=== PATIENT | male | born 1975 | race Hispanic/Latino ===

== ENCOUNTER 2018-06-15 08:45 | Emergency (ER) | payer OTHER ==
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
== END 2018-06-15 09:54 | disposition home or self-care (01) ==
LOC: ER 08:45
DX: M54.2 Cervicalgia (principal); M54.9 Dorsalgia, unspecified; V49.40XA Driver injured in collision with unspecified motor vehicles in traffic accident, initial encounter
CPT/HCPCS: 99283

== ENCOUNTER 2023-11-21 17:34 | Emergency (ER) | payer OTHER ==
--- NOTE | 2023-11-21 19:43 | EDPHYS ---
Physician Documentation [facility] Name: Dominick Rao Age: 48 yrs Sex: Male : 1975 Arrival Date: 11/21/2023 Time: 17:34 Bed Treatment Private MD: ED Physician Hilario Seaman HPI: 11/20 18:03 This 48 yrs old Male presents to ER via Ambulatory with complaints of Insect sb4 Bite. 18:33 patient reports multiple abscesses of varying severities on his right flank, left leg, sb4 and buttocks. he is unsure what they started as, possibly chiggers. states he has bene trying to manage them at home but they are very red and painful. Historical: - Allergies: 17:52 No Known Allergies; ll1 - PMHx: 17:52 Hypertensive disorder; ll1 - PSHx: 17:52 lap band; ll1 - Immunization history:: Adult Immunizations up to date. - Infectious Disease History:: Denies. - Social history:: Smoking status: Patient/guardian denies using tobacco, Stopped _ months ago 3. ROS: 18:34 Constitutional: Negative for fever, chills, and weight loss, sb4 18:34 Skin: Positive for abscess, per HPI, 18:34 All other systems are negative, Exam: 19:38 Skin: abscess, that is small, of the left hamstring, with induration, with surrounding sb4 cellulitis, that is mild, 19:39 Skin: abscess, that is small, of the left gluteus lorraine, with induration, sb4 19:39 Constitutional: This is a well developed, well nourished patient who is awake, alert, sb4 and in no acute distress. Head/Face: Normocephalic, atraumatic. Eyes: Extra-ocular motions intact. Periorbital areas with no swelling, redness, or edema. ENT: Mucous membranes moist. 19:39 Skin: abscess, that is small, of the right low back, with induration, with surrounding cellulitis, Vital Signs: 17:51 BP 159 / 86; Pulse 90; Resp 17; Temp 98.2; Pulse Ox 100% on R/A; Weight 86.18 kg; ll1 Height 5 ft. 6 in. ; Pain 9/10; 19:54 BP 151 / 97; Pulse 90; Resp 17; Pulse Ox 99% on R/A; Pain 5/10; al5 17:51 Body Mass Index 30.67 (86.18 kg, 167.64 cm) ll1 17:51 Pain Scale: Adult ll1 19:54 Pain Scale: Adult al5 Procedures: 19:39 I \T\ D: Incision and drainage was performed for an abscess of the left left hamstring sb4 Prepped with Betadine, Anesthetized with 2 ml's 1% Lidocaine. Incised with #11 blade. Drained small amount serosanguinous fluid. the patient tolerated the procedure well. 19:41 I \T\ D: Incision and drainage was performed for an abscess of the left left gluteus sb4 lorraine Prepped with Betadine, Anesthetized with 1 ml's 1% Lidocaine. Incised with #11 blade. Drained small amount the patient tolerated the procedure well. MDM: 17:47 Patient medically screened. sb4 19:39 Differential diagnosis: abscess, allergic reaction, cellulitis, insect bite. Data sb4 reviewed: vital signs, nurses notes, and as a result, I will discharge patient. 19:41 Counseling: I had a detailed discussion with the patient and/or guardian regarding the sb4 historical points, exam findings, and any diagnostic results supporting the discharge/admit diagnosis, to return to the emergency department if symptoms worsen or persist or if there are any questions or concerns that arise at home. 11/20 17:56 Order name: Incision \T\ Drainage Setup; Complete Time: 19:41 sb4 Administered Medications: 19:45 Not Given (med not available in pyxiss): trimethoprim-sulfamethoxazole(160 mg-800 mg al5 (ds) 1 tablet PO once 19:52 Drug: Cephalexin PO 500 mg PO once Route: PO; al5 19:55 Follow up: Response: No adverse reaction al5 Disposition Summary: 11/21/23 19:42 Discharge Ordered Notes: Location: Home sb4 Problem: new sb4 Symptoms: have improved sb4 Condition: Stable sb4 Diagnosis - Cutaneous abscess of left lower limb sb4 - Cutaneous abscess of buttock sb4 Followup: sb4 - With: Private Physician - When: As needed - Reason: Recheck today's complaints, Re-evaluation by your physician Discharge Instructions: - Discharge Summary Sheet sb4 - Skin Abscess, [id number] sb4 - Incision and Drainage, Care After sb4 Forms: - Antibiotic Education sb4 - Patient Portal Instructions sb4 - Leadership Thank You Letter sb4 Prescriptions: - Cephalexin 500 mg Oral Capsule - take 1 capsule ORAL route every 8 hours for 10 days; 30 capsule; Refills: 0, sb4 Product Selection Permitted - Bactrim DS 800-160 mg Oral Tablet - take 1 tablet ORAL route every 12 hours for 7 days; 14 tablet; Refills: 0, sb4 Product Selection Permitted Signatures: Milena Telles, RN RN ll1 Mary Lipscomb, PA-C PA-C sb4 Darby Cates RN RN al5
--- NOTE | 2023-11-21 19:43 | ER ---
Nurse's Notes [facility] Name: Dominick Rao Age: 48 yrs Sex: Male : 1975 Arrival Date: 11/21/2023 Time: 17:34 Bed Treatment Private MD: Diagnosis: Cutaneous abscess of left lower limb;Cutaneous abscess of buttock Presentation: 11/20 17:51 Chief complaint: Patient states: Abscess to R side of back for 4 days, this site seems ll1 to be getting better. Small abscess to L buttocks developed since, that area getting worse. No fever. Coronavirus screen: Client denies travel out of the [place] in the last 14 days. At this time, the client does not indicate any symptoms associated with coronavirus-19. Ebola Screen: Patient denies travel to an Ebola-affected area in the 21 days before illness onset. Initial Sepsis Screen: Does the patient meet any 2 criteria? No. Patient's initial sepsis screen is negative. Does the patient have a suspected source of infection? No. Patient's initial sepsis screen is negative. Risk Assessment: Do you want to hurt yourself or someone else? Patient reports no desire to harm self or others. Onset of symptoms was November 18, 2023. 17:51 Method Of Arrival: Ambulatory ll1 17:51 Acuity: ELENITA 3 ll1 Triage Assessment: 17:53 General: Appears in no apparent distress. Behavior is calm, cooperative, appropriate ll1 for age. Pain: Complains of pain in L buttocks Quality of pain is described as aching. Neuro: No deficits noted. Cardiovascular: No deficits noted. Derm: Abscess located on L buttocks. 19:55 Bite description: bite sustained to buttocks by insect, animal information: al5 vaccination(s) is not applicable. Historical: - Allergies: 17:52 No Known Allergies; ll1 - PMHx: 17:52 Hypertensive disorder; ll1 - PSHx: 17:52 lap band; ll1 - Immunization history:: Adult Immunizations up to date. - Infectious Disease History:: Denies. - Social history:: Smoking status: Patient/guardian denies using tobacco, Stopped _ months ago 3. Screenin:54 [facility] ED Fall Risk Assessment (Adult) History of falling in the last 3 months, al5 including since admission No falls in past 3 months (0 pts) Confusion or Disorientation No (0 pts) Intoxicated or Sedated No (0 pts) Impaired Gait No (0 pts) Mobility Assist Device Used No (0 pt) Altered Elimination No (0 pt) Score/Fall Risk Level 0 - 2 = Low Risk Oriented to surroundings, Maintained a safe environment, Hourly rounding (assess needs \T\ fall precautionary measures) done. Abuse screen: Denies threats or abuse. Denies injuries from another. Nutritional screening: No deficits noted. Tuberculosis screening: No symptoms or risk factors identified. Assessment: 19:53 General: Appears in no apparent distress. Behavior is calm, cooperative. Pain: Pain al5 currently is 5 out of 10 on a pain scale. Neuro: No deficits noted. Level of Consciousness is awake, alert, obeys commands, Oriented to person, place, time, situation. Cardiovascular: No deficits noted. Patient's skin is warm and dry. Respiratory: No deficits noted. Airway is patent Trachea midline Respiratory effort is even, unlabored, Respiratory pattern is regular, symmetrical. GI: No deficits noted. No signs and/or symptoms were reported involving the gastrointestinal system. : No deficits noted. No signs and/or symptoms were reported regarding the genitourinary system. EENT: No deficits noted. No signs and/or symptoms were reported regarding the EENT system. Derm: Skin is intact, Skin is pink, warm \T\ dry. normal, Reports insect bite. Musculoskeletal: No deficits noted. No signs and/or symptoms reported regarding the musculoskeletal system. Vital Signs: 17:51 BP 159 / 86; Pulse 90; Resp 17; Temp 98.2; Pulse Ox 100% on R/A; Weight 86.18 kg; ll1 Height 5 ft. 6 in. ; Pain 9/10; 19:54 BP 151 / 97; Pulse 90; Resp 17; Pulse Ox 99% on R/A; Pain 5/10; al5 17:51 Body Mass Index 30.67 (86.18 kg, 167.64 cm) ll1 17:51 Pain Scale: Adult ll1 19:54 Pain Scale: Adult al5 ED Course: 17:38 Patient arrived in ED. mg5 17:40 Mary Lipscomb PA-C is PHCP. sb4 17:41 Hilario Seaman MD is Attending Physician. sb4 17:52 Triage completed. ll1 17:53 Arm band placed on. ll1 19:20 Darby Cates, RN is Primary Nurse. al5 19:54 Patient has correct armband on for positive identification. Bed in low position. Call al5 light in reach. Side rails up X 1. Provided Education on: processes and procedures.. 19:55 Assist provider with I \T\ D: of an abscess on Set up I\T\D tray. Performed by Mary Lipscomb al 5 YAS Patient tolerated well. Patient did not have IV access during this emergency room visit. Administered Medications: 19:45 Not Given (med not available in pyxiss): trimethoprim-sulfamethoxazole(160 mg-800 mg al5 (ds) 1 tablet PO once 19:52 Drug: Cephalexin PO 500 mg PO once Route: PO; al5 19:55 Follow up: Response: No adverse reaction al5 Medication: 19:55 VIS not applicable for this client. al5 Outcome: 19:42 Discharge ordered by MD. sb4 19:56 Discharged to home ambulatory, al5 19:56 Condition: good 19:56 Discharge instructions given to patient, Instructed on discharge instructions, follow up and referral plans. medication usage, Demonstrated understanding of instructions, follow-up care, medications, 19:56 Patient left the ED. al5 Signatures: Milena Telles RN RN 1 Mary Lipscomb PA-C PA-C sb4 Shell Marquez mg5 Darby Cates, DESTINEE RN al5
[2023-11-21] MEDS ORDERED: CEPHALEXIN 250 MG CAP ONE ×2 (19:44→19:45)
[2023-11-21 20:43] VITALS: BP 151/97; TEMP 98.2; O2SAT 99
== END 2023-11-21 19:56 | disposition home or self-care (01) ==
LOC: ER 17:34
PROC: 0H98XZZ Drainage of Buttock Skin, External Approach (ICD-10-PCS; principal; 2023-11-21)
PROC: 0H9LXZZ Drainage of Left Lower Leg Skin, External Approach (ICD-10-PCS; 2023-11-21)
DX: L02.416 Cutaneous abscess of left lower limb (principal); L02.31 Cutaneous abscess of buttock
CPT/HCPCS: 99283